=== PATIENT | male | born 2000 | race Caucasian/White ===

== ENCOUNTER 2023-10-06 22:50 | Emergency (ER) | payer SELFPAY ==
[~2023-10-06] VITALS: Ht 187.9 cm
[2023-10-06] MEDS ORDERED: methylPREDNISolone sod succ 125 MG VIAL IV ONE (23:10)
[2023-10-06] MEDS ORDERED: Albuterol Sulf/Ipratropium 3 ML VIAL NEB ONE ×2 (23:10)
[2023-10-07 02:02] VITALS: BP 121/70
[2023-10-07] MEDS ORDERED: PREDNISONE20 M1 PO (02:21)
== END 2023-10-07 03:28 | disposition left against medical advice (07) ==
LOC: ED 22:50
DX: J45.901 Unspecified asthma with (acute) exacerbation (principal); Z53.29 Procedure and treatment not carried out because of patient's decision for other reasons